=== PATIENT | male | born 1990 | race Caucasian/White ===

== ENCOUNTER 2018-03-17 21:57 | Emergency (ER) | payer SELFPAY ==
[2018-03-17 22:04] VITALS: BP 148/79
[2018-03-17] MEDS ORDERED: IBUPROFEN 800 MG TAB PO ONE (22:50)
[2018-03-17] MEDS ORDERED: HYDROCODONE/APAP 5/325 TAB PO ONE (22:50)
--- NOTE | 2018-03-17 22:57 | EDPHY ---
H & P Stated Complaint: R ANKLE INJ YEST - Personal History Current Tetanus Diphtheria and Acellular Pertussis (TDAP): Yes - Medical/Surgical History Hx Asthma: No Hx Chronic Respiratory Disease: No Hx Diabetes: No Hx Cardiac Disease: No Hx Renal Disease: No Hx Cirrhosis: No Hx Alcoholism: No Hx HIV/AIDS: No Hx Splenectomy or Spleen Trauma: No Other PMH: R LEG SX - Social History Smoking Status: Never smoked Time Seen by Provider: 03/17/18 22:39 HPI/ROS: Chief complaint: Right ankle injury History of present illness: This is a 27-year-old male who presents to the emergency department for right ankle injury. Patient reports a day ago he rolled his ankle. Since then he has had pain and swelling. It makes it difficult to ambulate. He denies open wounds, abnormal coolness or paresthesias of the ankle. He reports the rest of his right leg feels fine. No report of trauma to other parts of the body. (Len Mckeon) - Physical Exam Exam: General: Alert, nontoxic. Skin: Ecchymosis to the lateral aspect of the foot and ankle. Musculoskeletal: Mild tenderness in the region of the ecchymosis. He can move the digits well. He moves the ankle well. The Achilles is intact. The lower leg and knee are nontender. Vascular: DP and PT pulses 2+. Neurologic: Sensation intact in the right lower extremity. (Len Mckeon) Constitutional: Initial Vital Signs Temperature (C) 36.4 C 03/17/18 22:02 Heart Rate 112 H 03/17/18 22:02 Respiratory Rate 20 03/17/18 22:02 Blood Pressure 148/79 H 03/17/18 22:02 O2 Sat (%) 96 03/17/18 22:02 O2 Delivery Mode Room Air Allergies/Adverse Reactions: No Known Allergies Allergy (Unverified 12/11/09 08:35) Home Medications: Medication Instructions Recorded NK [No Known Home Meds] 03/17/18 Medical Decision Making - Diagnostics Imaging: I viewed and interpreted images myself - Diagnostics Imaging Results: Imaging Impressions Ankle X-Ray 03/17/18 22:05 Impression: 1. Normal right foot series. 2. Lateral ankle sprain. Foot X-Ray 03/17/18 22:14 Impression: 1. Normal right foot series. 2. Lateral ankle sprain. ED Course/Re-evaluation: Patient seen under the supervision of my secondary supervising physician Dr. Annika Hightower. Patient presents for right foot foot and ankle injury. The foot and ankle are neurovascularly intact. X-rays are negative. This appears to be a sprain/strain. He is already on crutches. RICE therapy is discussed. He is to follow up with a primary care doctor or orthopedic doctor for recheck. Referral information was provided. Return precautions are given. The patient voiced understanding and agreement with plan. (Len Mckeon) PHYSICIAN DOCUMENTATION: The patient was evaluated and managed by the Physician Compound Finisher. My co- signature indicates that I have reviewed this chart and I agree with the findings and plan of care as documented. I am the secondary supervising physician. (Annika Hightower) Differential Diagnosis: Included but not limited to contusion, sprain or strain, bony fracture (Len Mckeon) - Data Points Medications Given: Discontinued Medications Hydrocodone Bitart/Acetaminophen (Lewis 5/325) 1 tab PO EDNOW ONE Stop: 03/17/18 22:51 Last Admin: 03/17/18 23:32 Dose: 1 tab Hydrocodone Bitart/Acetaminophen (Lewis 5/325mg Prepack#6) 1 btl TAKEHOME EDNOW ONE Stop: 03/17/18 23:06 Last Admin: 03/17/18 23:32 Dose: 1 btl Ibuprofen (Motrin) 800 mg PO EDNOW ONE Stop: 03/17/18 22:51 Last Admin: 03/17/18 23:31 Dose: 800 mg Departure - Departure Disposition: Home, Routine, Self-Care Clinical Impression: Ankle sprain Qualifiers: Encounter type: initial encounter Involved ligament of ankle: unspecified ligament Laterality: right Qualified Code(s): S93.401A - Sprain of unspecified ligament of right ankle, initial encounter Condition: Good Instructions: Hydrocodone/Acetaminophen (By mouth), Ankle Sprain (ED) Additional Instructions: Follow-up with a primary care doctor or orthopedic doctor for continued evaluation and care Use ibuprofen 800 mg 3 times a day for the next 2-3 days for pain control In addition you can use Tylenol 1000 mg 3 times a day for the next 2-3 days for pain control Ice the injury, 3 times daily for 20 min for the next day Elevate the injury as much as possible If symptoms worsen or new symptoms develop return to the emergency room for recheck Referrals: NONE *PRIMARY CARE P,. [Primary Care Provider] - As per Instructions [facility],. [Clinic] - As per Instructions Vickey Mackey MD [Medical Doctor] - As per Instructions
[2018-03-17] MEDS ORDERED: HYDROCOD/APAP 5/325 PREPACK#6 BTL TAKEHOME ONE (23:05)
== END 2018-03-17 23:50 | disposition home or self-care (01) ==
DX: S93.401A Sprain of unspecified ligament of right ankle, initial encounter (principal); X50.1XXA Overexertion from prolonged static or awkward postures, initial encounter; Y92.9 Unspecified place or not applicable; Y93.9 Activity, unspecified; Y99.9 Unspecified external cause status
CPT/HCPCS: L4386